=== PATIENT | male | born 1980 | race Caucasian/White ===

== ENCOUNTER 2020-07-04 10:04 | Emergency (ER) | payer OTHER ==
[~2020-07-04 10:04] MED LIST: CYCLOBENZAPRINE10 MG PO; LODINE400 MG PO; MEDROL 4MG DOSEP4 MG PO
[2020-07-04] MEDS ORDERED: VIBRAMYCIN100 MG PO (11:47)
[2020-07-04] MEDS ORDERED: BACTROBAN NASAL1 GM TOP (11:47)
[2020-07-04] MEDS ORDERED: NORCO 5-325 TA1 EACH PO (11:47)
[2020-07-04] MEDS ORDERED: VOLTAREN100 GM TOP (11:47)
== END 2020-07-04 11:48 | disposition home or self-care (01) ==
LOC: FER 10:04
DX: M70.21 Olecranon bursitis, right elbow (principal)
CPT/HCPCS: 73080

== ENCOUNTER 2021-01-12 08:40 | Emergency (ER) | payer OTHER ==
[~2021-01-12 08:40] MED LIST changes: +BACTROBAN NASAL1 GM TOP; +NORCO 5-325 TA1 EACH PO; +VIBRAMYCIN100 MG PO; +VOLTAREN100 GM TOP
[2021-01-12 09:37] LABS: BASOPHIL 0.4 % (0-2); EOSINOPHIL 2.1 % (0-5); HCT 47.6 % (42.0-52.0); HGB 15.8 g/dl (13.2-18.0); LYMPHOCYTE 26.8 % (15-48); MCH 28.8 pg (25.0-31.0); MCHC 33.2 g/dL (32.0-36.0); MCV 86.9 fL (78.0-100.0); MONOCYTE 7.9 % (0-12); MPV 9.4 fL (6.0-9.5); NEUTROPHIL 62.4 % (41-80); NRBC 0; PLT 295 K/uL (150-400); RBC 5.48 M/uL (4.70-6.00); WBC 7.2 K/uL (4.0-10.5)
[2021-01-12 09:49] LABS: ALBUMIN 3.3 g/dL (3.4-5.0); BILIRUBIN - TOTAL 0.2 mg/dL (0.2-1.0); BUN/CREAT RATIO (CALC) 17.8 RATIO; CREATININE 1.01 mg/dL (0.67-1.17); GLOBULIN (CALCULATION) 3.9 g/dL; POTASSIUM 3.8 mmol/L (3.5-5.1); TOTAL PROTEIN 7.2 g/dL (6.4-8.2)
[2021-01-12 10:50] LABS: CORONAVIRUS 2019 SARS-COV-2 NEGATIVE (NEGATIVE); INFLUENZA A NAA NEGATIVE (NEGATIVE)
[2021-01-12] MEDS ORDERED: FLOMAX0.4 MG PO (11:19)
[2021-01-12] MEDS ORDERED: NAPROXEN500 MG PO (11:19)
[2021-01-12] MEDS ORDERED: ONDANSETRON ODT4 MG PO (11:19)
[2021-01-12] MEDS ORDERED: PERCOCET 10-321 EACH PO (11:19)
[2021-01-12] MEDS ORDERED: BACTRIM DS TAB1 EACH PO (11:20)
== END 2021-01-12 12:05 | disposition home or self-care (01) ==
LOC: FER 08:40
PROVIDERS: Internal Medicine
DX: N13.2 Hydronephrosis with renal and ureteral calculous obstruction (principal); L03.312 Cellulitis of back [any part except buttock and flank]; I10 Essential (primary) hypertension; F17.210 Nicotine dependence, cigarettes, uncomplicated; Z20.822 Contact with and (suspected) exposure to COVID-19
CPT/HCPCS: 36415; 71045; 80053; 83690; 84484; 85025; 93005; J0696; J1170; J2405; J7030; U0002

== ENCOUNTER 2021-10-16 12:09 | Emergency (ER) | payer SELFPAY ==
[~2021-10-16 12:09] MED LIST changes: +BACTRIM DS TAB1 EACH PO; +FLOMAX0.4 MG PO; +NAPROXEN500 MG PO; +ONDANSETRON ODT4 MG PO; +PERCOCET 10-321 EACH PO
[2021-10-16] MEDS ORDERED: AMOXICILLIN500 MG PO (13:09)
[2021-10-16] MEDS ORDERED: COZAAR50 MG PO (13:40)
== END 2021-10-16 13:54 | disposition home or self-care (01) ==
LOC: FER 12:09
DX: H60.91 Unspecified otitis externa, right ear (principal); H60.331 Swimmer's ear, right ear; I10 Essential (primary) hypertension; F17.210 Nicotine dependence, cigarettes, uncomplicated
CPT/HCPCS: 99282; J1100; J1885

== ENCOUNTER 2021-10-18 09:39 | Emergency (ER) | payer SELFPAY ==
[~2021-10-18 09:39] MED LIST changes: +AMOXICILLIN500 MG PO; +COZAAR50 MG PO
[2021-10-18] MEDS ORDERED: CIPRO500 MG PO (10:37)
== END 2021-10-18 11:34 | disposition home or self-care (01) ==
LOC: FER 09:39
DX: H60.11 Cellulitis of right external ear (principal); F17.210 Nicotine dependence, cigarettes, uncomplicated; Z28.310 Unvaccinated for COVID-19
CPT/HCPCS: 96372; J0696; J1100